=== PATIENT | male | born 1990 | race Caucasian/White ===

== ENCOUNTER 2025-02-05 08:39 | Outpatient (CLI) | payer BC, SELFPAY | END 2025-02-05 08:40 | disposition home or self-care (01) | PROVIDERS: PCP Family Medicine; Visit Provider Family Medicine | DX: I10 Essential (primary) hypertension (principal) | CPT/HCPCS: 82565; 84132; 84295 ==

== ENCOUNTER 2025-04-12 13:03 | Outpatient (CLI) | payer BC, SELFPAY ==
--- NOTE | 2025-04-21 13:05 | W.PM.SLEEP ---
Sleep Study Details Details Interpreting Provider: Merritt Date of Sleep Study: 04/12/25 Sleep Study Details: STUDY TYPE:? Home unattended ? BMI:? 31.87 ORDERING PROVIDER:Jamil Morales INDICATION:? Concern for sleep apnea ? SLEEP SUMMARY:? 503 minutes monitored RESPIRATORY SUMMARY:? AHI 71.2, central apnea index 18.6 Low oxygen 70 50.7% of the study oxygen less than 90% Snoring 94.5% PERIODIC LIMB MOVEMENTS OF SLEEP:? Not recorded CARDIAC:? Range 55-119, mean 75.5 beats per minute IMPRESSION:? Severe mixed sleep apnea with an overall AHI of 71.2 and a central apnea index of 18.6. Significant desaturation for half the study was noted RECOMMENDATION: In-lab titration. Ideally an echocardiogram would be performed prior to the titration study to verify a normal ejection fraction in the event the patient requires an ASV.
== END 2025-04-12 13:04 | disposition home or self-care (01) ==
LOC: SLEEP 13:04
PROVIDERS: PCP Family Medicine; Visit Provider Otolaryngology
DX: G47.33 Obstructive sleep apnea (adult) (pediatric) (principal)
CPT/HCPCS: 95806

== ENCOUNTER 2025-04-13 11:48 | Emergency (ER) | payer BC, SELFPAY ==
[2025-04-13 12:33] VITALS: BP 141/94; PULSE 93; RESP 18; TEMP 36.6; O2SAT 95
--- NOTE | 2025-04-13 13:11 | ED.WOUNDLAC ---
HPI - Wound/Laceration General Date Seen: 04/13/25 Chief Complaint: Laceration/Wound Stated Complaint: L index finger injury Time Seen by Provider: 04/13/25 12:45 Source: patient Mode of arrival: ambulatory Limitations: no limitations History of Present Illness HPI narrative: Patient is a 34-year-old male presenting for laceration to his left index finger. He was using impact wrench yesterday around 16:00 when he cut his finger. It is in the pad of the left index finger. He states he has washed it out multiple times since then. It is still occasionally bleeding so came to the ED to be evaluated. States the pain is minimal. No other concerns noted. Related Data Home Medications ?Medication ?Instructions ?Recorded ?Confirmed multivit,Ca,min-iron 8 mg-folic tab PO 02/05/25 02/05/25 acid 200 mcg-lycopene 600 mcg tablet (Centrum Men) Previous Rx's ?Medication ?Instructions ?Recorded lisinopril 20 1 tab PO QDAY #90 tabs 02/05/25 mg-hydrochlorothiazide 25 mg tablet mirtazapine 30 mg tablet 30 mg PO QPM #90 tabs 02/05/25 omeprazole 20 mg capsule,delayed 20 mg PO DAILY #90 caps 02/05/25 release paroxetine HCl 40 mg tablet 40 mg PO DAILY #90 tabs 02/05/25 Allergies Allergy/AdvReac Type Severity Reaction Status Date / Time No Known Drug Allergies Allergy Verified 04/13/25 12:38 Review of Systems Narrative: Pertinent systems reviewed and were negative unless stated in HPI PFSH PFS Medical History Depression ?F32.A - Depression, unspecified (ICD-10) Snoring ?R06.83 - Snoring (ICD-10) GERD (gastroesophageal reflux disease) ?K21.9 - Gastro-esophageal reflux disease without esophagitis (ICD-10) Primary hypertension ?I10 - Essential (primary) hypertension (ICD-10) DREAD (generalized anxiety disorder) ?F41.1 - Generalized anxiety disorder (ICD-10) Social History What is your current living situation?: I presently have a place to live Problems where you live: no known problems In the past 12 months, utilities in danger of being shut off: no In past 12 months, lack of transportation kept you from medical appts, meetings, work, or getting things needed for daily living: no In the past 12 mos, have been you worried that your food would run out before you had money to buy more?: never true In the past 12 mos, the food you bought just didn't last and you didn't have money to buy more?: never true How often does anyone, including family, friends and others, physically hurt you: never How often does anyone, including family, friends and others, insult or talk down to you: never How often does anyone, including family, friends and others, threaten you with harm: never How often does anyone, including family, friends and others, scream or curse at you: never Exam Narrative: Exam Narrative: Const: Well-nourished, Well-developed, in no distress Eyes: PERRL, no conjunctival injection, and symmetrical lids HENT: Atraumatic external nose and ears. Moist mucous membranes MSK:Extremities w/o deformity, Normal Active ROM Skin: Warm, Dry. 1 cm circular laceration to the pad of left index finger Neuro: Normal Muscle tone, No focal neurological deficits. Psych: Awake, Alert, & Oriented x3. Appropriate mood and affect. Const: Vital Signs, click to edit/add: Vital Signs - 24 hr 04/13/25 12:33 Temperature 97.8 F Pulse Rate [Right Pulse Oximeter] 93 Respiratory Rate 18 Blood Pressure [Ri ght Upper Arm] 141/94 H Pulse Oximetry 95 Oxygen Delivery Me thod Room Air Course Vital Signs Vital signs: Initial Vital Signs Temperature 97.8 F 04/13/25 12:33 Temperature Source Temporal Artery Scan 04/13/25 12:33 Pulse Rate 93 04/13/25 12:33 Pulse Rhythm Regular 04/13/25 12:33 Pulse Strength 3+ Normal 04/13/25 12:33 Respiratory Rate 18 04/13/25 12:33 Blood Pressure 141/94 H 04/13/25 12:33 Blood Pressure Mean 109 H 04/13/25 12:33 Blood Pressure Position Sitting 04/13/25 12:33 Pulse Oximetry 95 04/13/25 12:33 Oxygen Delivery Method Room Air 04/13/25 12:33 Vital Signs Temperature 97.8 F 04/13/25 12:33 Pulse Rate 93 04/13/25 12:33 Respiratory Rate 18 04/13/25 12:33 Blood Pressure 141/94 H 04/13/25 12:33 Pulse Oximetry 95 04/13/25 12:33 Oxygen Delivery Method Room Air 04/13/25 12:33 Temperature 97.8 F 04/13/25 12:33 Pulse Rate 93 04/13/25 12:33 Respiratory Rate 18 04/13/25 12:33 Blood Pressure 141/94 H 04/13/25 12:33 Pulse Oximetry 95 04/13/25 12:33 Oxygen Delivery Method Room Air 04/13/25 12:33 MDM - Wound/Laceration MDM Narrative Medical decision making narrative: Patient is a 34-year-old male presenting for laceration to his right index finger. Due to time frame sutures are not indicated. Is become about moving parts of it together to help with the healing process. He is agreeable to this plan. No foreign bodies noted on exam. Did wash out the finger again prior to placing skin glue. He tolerated the procedure well. He will be discharged. As it is a wound that was not closed immediately and it is on his finger I will do Keflex to help prevent infection. Discharge Plan Discharge Clinical Impression: Laceration of left index finger Qualifiers: Encounter type: initial encounter Damage to nail status: without damage Foreign body presence: without foreign body Qualified Code(s): S61.211A - Laceration without foreign body of left index finger without damage to nail, initial encounter Patient Disposition: Home, Self-Care Condition: Stable Instructions: Finger Laceration (ED) Additional Instructions: Keep the area covered for the next few days. Skin glue will fall off on its own over time. Return to emergency department for new or worsening symptoms. Make sure to take the antibiotics as directed. Prescriptions: No Action Centrum Men 8 mg iron- 200 mcg-600 mcg tablet PO paroxetine HCl 40 mg tablet 40 mg PO DAILY Qty: 90 3RF mirtazapine 30 mg tablet 30 mg PO QPM Qty: 90 3RF lisinopril-hydrochlorothiazide 20-25 mg tablet 1 tab PO QDAY Qty: 90 3RF omeprazole 20 mg capsule,delayed release(DR/EC) 20 mg PO DAILY Qty: 90 3RF Follow Up/Referrals: Rosales Morales MD [Primary Care Provider, Family Practice] Stand Alone Forms: My[facility] Info Instructions
== END 2025-04-13 13:42 | disposition home or self-care (01) ==
PROVIDERS: Emergency Provider Student in an Organized Health Care Education/Training Program; PCP Family Medicine
DX: S61.211A Laceration without foreign body of left index finger without damage to nail, initial encounter (principal); W29.8XXA Contact with other powered hand tools and household machinery, initial encounter
CPT/HCPCS: 12001; 99283